=== PATIENT | male | born 1965 | race American Indian/Alaskan Native ===

== ENCOUNTER 2019-05-16 06:27 | Day surgery (SDC) | payer OTHER ==
[2019-05-16] MEDS ORDERED: WATER FOR IRRIG STERILE IR ONE (07:08)
[2019-05-16] MEDS ORDERED: WATER FOR IRRIG STERILE ONE (07:09)
--- NOTE | 2019-05-16 07:47 | Anesthesia Consultation ---
Anesthesia Consult and Med Hx Date of service: 05/16/19 - Airway Anesthetic Teeth Evaluation: Good ROM Head & Neck: Adequate Mental/Hyoid Distance: Adequate Mallampati Class: Class III Intubation Access Assessment: Possibly Difficult - Pulmonary Exam CTA: Yes - Cardiac Exam Cardiac Exam: RRR - Pre-Operative Health Status ASA Pre-Surgery Classification: ASA2 Proposed Anesthetic Plan: MAC - Pulmonary Hx Smoking: No Hx Respiratory Symptoms: No Hx Sleep Apnea: Yes (compliant with CPAP) - Cardiovascular System Hx Hypertension: No Hx Heart Attack/AMI: No - Central Nervous System CVA: No - Gastrointestinal Hx Gastroesophageal Reflux Disease: No - Endocrine Hx Renal Disease: No Hx Liver Disease: No Hx Insulin Dependent Diabetes: No Hx Non-Insulin Dependent Diabetes: No Hx Thyroid Disease: No - Other Systems Hx Alcohol Use: Yes Hx Obesity: Yes - Additional Comments Anesthesia Medical History Comments: Hx PONV with previous GA.
--- NOTE | 2019-05-16 07:47 | Anesthesia Day of Surgery ---
Anesthesia Day of Surgery - Day of Surgery Patient Examined: Yes Patient H&P Reviewed: Yes Patient is NPO: Yes
[2019-05-16] MEDS: NACL 0.9% 1000 ML 1,000 ML IV SCH ×2 (07:48→07:49)
[2019-05-16] MEDS ORDERED: XYLOCAINE 2% INFILTRATI ONE (08:11)
[2019-05-16] MEDS ORDERED: NACL 0.9% 100 ML ONE (08:11)
[2019-05-16] MEDS ORDERED: DIPRIVAN 10 MG/ML IV ONE ×2 (08:11)
--- NOTE | 2019-05-16 08:47 | Procedure Note ---
Date of procedure: 05/16/19 Pre-op diagnosis: Colon Polyp Screening Post-op diagnosis: other (Two Small Cecal Polyps (removed by cold biopsy)/ No Diverticular Disease or Internal Hemorrhoid noted) Procedure: Colonoscopy with Cold Biopsy Anesthesia: MAC Surgeon: NICKOLAS BOYER Estimated blood loss: minimal Pathology: list Specimen disposition: to lab Condition: stable Disposition: same day (Avoid aspirin and NSAID for 5 days. Follow up in 1 to 2 weeks ([phone]).)
--- NOTE | 2019-05-16 09:10 | Operative Report ---
PROCEDURE: Colonoscopy with biopsy. INDICATIONS: This is a 54-year-old -[place] gentleman in otherwise good health, who had a colonoscopy done as part of colon polyp screening. DESCRIPTION OF PROCEDURE: Procedure was done after getting informed consent with MAC anesthesia. Initial rectal exam was unremarkable. Instrument was passed through the rectum onto the cecum which was identified with ileocecal valve and the appendiceal orifice. Visualization was fair to good. There were two small polyps noted in the cecum that were removed by cold biopsy. There was minimal bleeding from the biopsy sites and no complications associated with the procedure. The remaining part of the proximal colon, transverse colon, descending colon, and sigmoid showed normal mucosa. The rectum appeared normal on the retroverted view. ASSESSMENT: Colon polyp screening. Two cecal polyps noted that were removed by cold biopsy. No diverticular disease or internal hemorrhoids noted. There was minimal bleeding associated with the procedure. No complications associated with the procedure. PLAN: The patient will be asked to follow up in the office in 1-2 weeks' time. The procedure was done in the GI lab with the assistance of anesthesia and in the presence and with the assistance of the GI lab team, which included ANMOL Patrick and eric Gutiérrez. JOB# [id number] SHANE/GRETTA
[2019-05-16 09:16] VITALS: BP 102/60
== END 2019-05-16 06:28 | disposition home or self-care (01) ==
LOC: GIO 06:27
DX: Z12.11 Encounter for screening for malignant neoplasm of colon (principal); D12.0 Benign neoplasm of cecum; G47.30 Sleep apnea, unspecified; E66.9 Obesity, unspecified; Z68.33 Body mass index [BMI] 33.0-33.9, adult; Z72.89 Other problems related to lifestyle
CPT/HCPCS: 45380; 88305; J2704; J7030